=== PATIENT | female | born 2000 | race African-American/Black ===

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

== ENCOUNTER 2022-07-24 22:30 | Emergency (ER) | payer OTHER ==
[2022-07-24 23:27] LABS: Hemoglobin 10.4 g/dL (12.0-16.0); Mean Corpuscular Hemoglobin 21.5 pg (25.0-35.0); Mean Corpuscular Volume 69.3 fl (78.0-98.0); Mean Platelet Volume 9.7 fL (7.4-10.4); Platelet Count 533 10x3/uL (130-400); RBC Distribution Width 17.2 % (11.5-14.5); Red Blood Cell (RBC) Count 4.86 mill/uL (4.00-5.20); White Blood Cell (WBC) Count 14.8 10x3/uL (4.8-10.8)
[2022-07-24 23:49] LABS: ALT (SGPT) 16 U/L (8-55); AST (SGOT) 16 U/L (5-30); Albumin 4.4 g/dL (3.5-5.0); Alkaline Phosphatase 99 U/L (40-100); Anion Gap 13 mmol/L (10-20); BUN (Urea Nitrogen) 11 mg/dL (8.4-21.0); Bilirubin, Total 0.3 mg/dL (0.2-1.2); Calc. Creatinine Clearance 0 mL/min (70-130); Calcium 9.7 mg/dL (7.8-10.44); Carbon Dioxide 24 mmol/L (22-29); Chloride 104 mmol/L (98-107); Estimated GFR 112; Globulin 3.5 g/dL (2.4-3.5); Glucose 78 mg/dL (70-105); Potassium 4.4 mmol/L (3.5-5.1); Protein, Total 7.9 g/dL (6.0-8.3); Sodium 137 mmol/L (136-145)
[2022-07-24 23:50] LABS: #Eosinphils 0.1 thou/uL (0.0-0.7); #Monocytes 0.6 thou/uL (0.11-0.59); #Neutrophils 12.1 thou/uL (1.40-6.50); %Basophils 0.1 % (0.0-1.0); %Eosinophils 0.9 % (0.0-10.0); %Lymphocytes 13.4 % (28.0-48.0); %Neutrophils 81.7 % (31.0-61.0); MDiff Complete? YES; Microcytosis SLIGHT = 6-15 cells (100X) (0-5/hpf); Platelet Morphology Comment Appears Increased
[2022-07-25] MEDS ORDERED: cefTRIAXone\\ROCEPHIN 500 MG VIAL ONE (00:26)
[2022-07-25] MEDS ORDERED: Azithromycin 250 MG TAB ONE ×3 (00:26→00:32)
[2022-07-25 01:14] LABS: BHCG - Serum Negative (NEGATIVE); Pregs Control Background? CLEAR/WHITE (CLR/WHITE); Pregs Control Bar Appear? YES (CONTROL BAR)
[2022-07-25 19:45] LABS: Chlamydia by PCR Not Detected (NotDetected); GC by PCR Not Detected (NotDetected)
== END 2022-07-25 00:59 | disposition home or self-care (01) ==
LOC: ERS 22:30
DX: R07.89 Other chest pain (principal); N72 Inflammatory disease of cervix uteri; E11.9 Type 2 diabetes mellitus without complications
CPT/HCPCS: 36415; 71045; 80053; 84484; 84703; 85025; 87480; 87491; 87510; 87591; 87660; 93005; 96372; J0696

== ENCOUNTER 2023-05-21 14:20 | Emergency (ER) | payer OTHER, SELFPAY ==
[2023-05-21 17:33] LABS: SARS-CoV-2 NAA Rapid Test Not Detected (NotDetected)
== END 2023-05-21 18:25 | disposition home or self-care (01) ==
LOC: ERS 14:20
DX: B34.9 Viral infection, unspecified (principal); R05.9 Cough, unspecified; Z20.822 Contact with and (suspected) exposure to COVID-19
CPT/HCPCS: 71045

== ENCOUNTER 2025-08-03 11:28 | Emergency (ER) | payer SELFPAY | END 2025-08-03 13:22 | disposition home or self-care (01) | LOC: ERS 11:28 | DX: S92.425A Nondisplaced fracture of distal phalanx of left great toe, initial encounter for closed fracture (principal); W01.0XXA Fall on same level from slipping, tripping and stumbling without subsequent striking against object, initial encounter; Y93.01 Activity, walking, marching and hiking | CPT/HCPCS: 99283 ==